=== PATIENT | male | born 1965 | race Caucasian/White ===

== ENCOUNTER 2018-03-11 09:45 | Day surgery (SDC) | payer OTHER ==
[~2018-03-11] VITALS: Ht 172.7 cm; Wt 91.8 kg
[2018-03-11] MEDS ORDERED: ASPIRIN 325 MG TABLET EC PO ONE (10:00)
[2018-03-11] MEDS ORDERED: METF500T27 PO (10:04)
[2018-03-11] MEDS ORDERED: ROSU5TAB PO (10:04)
[2018-03-11] MEDS ORDERED: CHOL2000 PO (10:04)
[2018-03-11] MEDS ORDERED: MULT1CAP19 PO (10:04)
[2018-03-11] MEDS ORDERED: ASPI-515 PO (10:04)
[2018-03-11] MEDS ORDERED: GABA300C10 PO (10:04)
[2018-03-11] MEDS ORDERED: RAMI5CAP PO (10:04)
[2018-03-11] MEDS ORDERED: BIMA2.5D EACHEYE (10:04)
[2018-03-11 10:05] VITALS: BP 117/75
[2018-03-11 10:22] LABS: BASOPHILS # (AUTO) 0.05 x10^3/uL (0-0.1); BASOPHILS % (AUTO) 1 % (0-1); EOSINOPHILS # (AUTO) 0.47 x10^3/uL (0-0.4); EOSINOPHILS % (AUTO) 6 % (1-7); LYMPHOCYTES # (AUTO) 2.15 x10^3/uL (1-3.4); LYMPHOCYTES % (AUTO) 26 % (22-44); MD NO; MEAN CORPUSCULAR HEMOGLOBIN 30.5 pg (27.5-34.5); MEAN CORPUSCULAR HGB CONC 33.7 g/dL (33.2-36.2); MEAN CORPUSCULAR VOLUME 90.6 fL (81-97); MEAN PLATELET VOLUME 9.2 fL (7.4-10.4); MONOCYTES # (AUTO) 0.73 x10^3/uL (0.2-0.8); MONOCYTES % (AUTO) 9 % (2-9); NEUTROPHILS # (AUTO) 4.92 x10^3/uL (1.8-6.8); NEUTROPHILS % (AUTO) 59 % (42-75); PLATELET COUNT 336 x10^3/uL (130-400); RED BLOOD COUNT 4.84 x10^6/uL (4.38-5.82); RED CELL DISTRIBUTION WIDTH 13.2 % (9.4-14.8)
[2018-03-11] MEDS ORDERED: PLEASE ENTER ALLERGIES MC SCH (10:30)
[2018-03-11 10:33] LABS: ANION GAP 7 mmol/L (5-15); CALCIUM 8.9 mg/dL (8.5-10.1); CHLORIDE 108 mmol/L (98-107); CREATININE 1.06 mg/dL (0.7-1.3)
[2018-03-11] MEDS ORDERED: MIDAZOLAM 1 MG/ML, 5ML ONE (11:43)
[2018-03-11] MEDS ORDERED: HEPARIN 1,000 UNITS/ML, 10ML ONE (11:44)
[2018-03-11] MEDS ORDERED: VERAPAMIL 2.5 MG/ML, 2ML ONE (11:44)
[2018-03-11] MEDS ORDERED: NITROGLYCERIN 5 MG/ML, 10ML ONE (11:44)
[2018-03-11] MEDS ORDERED: BIVALIRUDIN 250 MG ONE (11:44)
[2018-03-11] MEDS ORDERED: FENTANYL PF 100 MCG/2ML ONE (11:44)
[2018-03-11] MEDS ORDERED: LIDOCAINE-MPF 2% ,5ML ONE (11:44)
[2018-03-11] MEDS ORDERED: PRASUGREL 10 MG TABLET ONE (11:45)
[2018-03-11] MEDS ORDERED: SODIUM CHLORIDE 0.9% 1,000 ML IV ONE (14:00)
[2018-03-11] MEDS ORDERED: SODIUM CHLORIDE 0.9% 1,000 ML IV SCH (14:00)
== END 2018-03-11 14:29 ==
LOC: CACL 09:45
PROVIDERS: ATTEND Internal Medicine Cardiovascular Disease
DX: I25.10 Atherosclerotic heart disease of native coronary artery without angina pectoris (principal); E11.40 Type 2 diabetes mellitus with diabetic neuropathy, unspecified; E78.2 Mixed hyperlipidemia; Z87.891 Personal history of nicotine dependence; J30.2 Other seasonal allergic rhinitis
CPT/HCPCS: 36415; 80048; 85025; 93458; 99156; C1769; C1894; J1644; J2250; J3010; J3490; Q9967; J0583